=== PATIENT | male | born 1955 | race Caucasian/White ===

== ENCOUNTER 2017-01-19 12:54 | Day surgery (SDC) | payer OTHER ==
--- NOTE | ~2017-01-19 | EGD ---
EGD REPORT [facility] [address] [id number] NAME: KAYLA REINOSO : [birth year] STATUS : REG [facility] [place] PAT#: [id number] AGE: 61 ADM/REG DATE : 01/19/17 MR#: [id number] REPORT SERV DATE: 01/19/17 DICTATED BY: MURALI SEPULVEDA DATE: 01/19/17 REPORT STATUS : Draft TRANSCRIBED BY: [facility] DATE: 01/19/17 Endoscopy Center Patient Name: Kayla Reinoso Date of : 1955 Attending MD: AMARJIT SEPULVEDA MD Procedure Date No Time: 01/19/2017 Procedure: Upper GI endoscopy Indications: Dysphagia, Patient with H/O distal esophageal cancer and esophagogastric anastamosis Referring MD: VIDHI MIGUEL Medicines: See the Anesthesia note for documentation of the administered medications Complications: No immediate complications. Estimated blood loss: None. Procedure: Pre-Anesthesia Assessment: - ASA Grade Assessment: III - A patient with severe systemic disease. - Prior to the procedure, a History and Physical was performed, and patient medications and allergies were reviewed. The patient's tolerance of previous anesthesia was also reviewed. The risks and benefits of the procedure and the sedation options and risks were discussed with the patient. All questions were answered, and informed consent was obtained. Prior Anticoagulants: The patient has taken no previous anticoagulant or antiplatelet agents. After reviewing the risks and benefits, the patient was deemed in satisfactory condition to undergo the procedure. After obtaining informed consent, the endoscope was passed under direct vision. Throughout the procedure, the patient's blood pressure, pulse, and oxygen saturations were monitored continuously. The GIF [id number] was introduced through the mouth, and advanced to the second part of duodenum. The upper GI endoscopy was accomplished without difficulty. The patient tolerated the procedure well. Findings: The examined duodenum was normal. The entire examined stomach was normal. An esophago-gastric anastomosis was found in the middle third of the esophagus. A guidewire was placed and the scope was withdrawn. Dilation was performed at the esophageal anastomosis with a Savary dilator with no resistance at 60 Fr. Estimated blood loss: none. EGD REPORT [address] [address] NAME: KAYLA REINOSO : [birth year] STATUS : REG [facility]#: [id number] AGE: 61 ADM/REG DATE : 01/19/17 MR#: [id number] REPORT SERV DATE: 01/19/17 DICTATED BY: MURALI SEPULVEDA DATE: 01/19/17 REPORT STATUS : Draft TRANSCRIBED BY: [facility] DATE: 01/19/17 Impression: - Normal examined duodenum. - Normal stomach. - An esophago-gastric anastomosis was found. - Dilation attempted at the esophageal anastomosis. Successful. Recommendation: - Patient has a contact number available for emergencies. The signs and symptoms of potential delayed complications were discussed with the patient. Return to normal activities tomorrow. Written discharge instructions were provided to the patient. - Regular diet. - Discharge patient to home. Procedure Code(s): --- Professional --- 45455, Esophagogastroduodenoscopy, flexible, transoral; with insertion of guide wire followed by passage of dilator(s) through esophagus over guide wire Diagnosis Code(s): --- Professional --- Z98.0, Intestinal bypass and anastomosis status R13.10, Dysphagia, unspecified CPT copyright 2013 [employer]. All rights reserved. The codes documented in this report are preliminary and upon clinical coder review may be revised to meet current compliance requirements. AMARJIT SEPULVEDA MD 01/19/2017 2:59 PM This report has been signed electronically. Number of Addenda: 0 Note Initiated On: 01/19/2017 2:39 PM Scope Withdrawal Time 0 hours 0 minutes 0 seconds [id number] [id number]
[~2017-01-19 12:54] MED LIST: AMBIEN CR12.5 MG PO; CO-Q-10 PO; COQ10100 MG OR; CRESTOR40 MG PO; GLUCPH PO; HCTZ25B PO; HYZAAR 50/12.51 TAB PO; KLONO5 PO; MULTIVITAMI1; NEUR300 PO; NEXIUM40 PO; PERCOCET1 TA4 PO; PR25 PO; PR25R PR; PROTONIX PO; REG PO; SOMA250 MG PO; SOMATAB PO; ULTRAM50 PO; VITAMIN B-121000 MC1 SL; VITAMIN B-2100 MG PO; VITAMIN D31000 UNIT PO; ZANTAC PO; ZETIA PO; ZOFRAN4 PO
== END 2017-01-19 23:59 | disposition home or self-care (01) ==
LOC: DMU 12:54
PROVIDERS: Internal Medicine Gastroenterology
PROC: 0D757ZZ Dilation of Esophagus, Via Natural or Artificial Opening (ICD-10-PCS; principal; 2017-01-19 14:30)
DX: R13.10 Dysphagia, unspecified (principal); I10 Essential (primary) hypertension; D64.9 Anemia, unspecified; K21.9 Gastro-esophageal reflux disease without esophagitis; E11.9 Type 2 diabetes mellitus without complications; E78.00 Pure hypercholesterolemia, unspecified; K44.9 Diaphragmatic hernia without obstruction or gangrene; Z98.0 Intestinal bypass and anastomosis status; Z85.01 Personal history of malignant neoplasm of esophagus; Z98.890 Other specified postprocedural states; Z88.5 Allergy status to narcotic agent; Z79.899 Other long term (current) drug therapy; Z79.84 Long term (current) use of oral hypoglycemic drugs
CPT/HCPCS: 82962; J2405